=== PATIENT | female | born 1980 | race Caucasian/White ===

== ENCOUNTER 2018-04-30 07:51 | Emergency (ER) | payer OTHER ==
[~2018-04-30] VITALS: Ht 160 cm; Wt 71.8 kg
[~2018-04-30 07:51] MED LIST: IBUPROFEN800 MG PO; MECLIZINE HCL25 MG PO; ZOFRAN ODT4 MG PO
[2018-04-30 08:29] LABS: APPEARANCE CLEAR ((CLEAR)); BILIRUBIN NEGATIVE; BLOOD NEGATIVE; COLOR STRAW ((YELLOW)); GLUCOSE (STRIP) NEGATIVE; KETONES NEGATIVE; LEUKOCYTES NEGATIVE; NITRITE NEGATIVE; PROTEIN (STRIP) NEGATIVE; SPECIFIC GRAVITY 1.003 (1.000-1.030); UCUL ADDED? NO; UROBILINOGEN 0.2 MG/DL (0.2-1.0)
[2018-04-30 08:47] LABS: HEMATOCRIT 38.6 % (36.0-46.0); HEMOGLOBIN 13.1 G/DL (11.9-15.5); MCH 30.5 PG (29.0-34.0); MCHC 33.9 G/DL (30.0-36.0); PLATELET COUNT 350 K/uL (156-360); RBC DIS.WIDTH-CV 13.3 % (11.8-14.6); RBC DIS.WIDTH-SD 43.8 % (39-53); RED BLOOD COUNT 4.29 M/uL (3.80-5.20); WHITE BLOOD COUNT 6.4 K/uL (4.1-10.2)
[2018-04-30 08:55] LABS: ALBUMIN 4.2 g/dL (3.2-4.8)
[2018-04-30 08:56] LABS: CHLORIDE 108 mEq/L (99-109); POTASSIUM 3.9 mEq/L (3.7-5.4); SODIUM 143 mEq/L (136-147)
[2018-04-30 08:58] LABS: GLUCOSE 95 mg/dL (70-99); TOTAL PROTEIN 7.1 g/dL (6.4-8.3)
[2018-04-30 09:00] LABS: TOTAL BILIRUBIN 0.3 mg/dL (0.0-1.0)
[2018-04-30 09:01] LABS: ALKALINE PHOSPHATASE 77 IU/L (3-129)
[2018-04-30 09:02] LABS: CREATININE 0.7 mg/dL (0.6-1.3); GFR ESTIMATE (CALCULATED) > 59 mL/min/
[2018-04-30 09:03] LABS: AST (GOT) 15 IU/L (2-34); UREA NITROGEN (BUN) 5 mg/dL (9-23)
[2018-04-30 09:05] LABS: ALT (GPT) 12 IU/L (3-49)
[2018-04-30 09:13] LABS: QUANTITATIVE HCG < 4.0 MIU/ML
[2018-04-30] MEDS ORDERED: PERCOCET 5/31 TABLET PO (10:42)
[2018-04-30] MEDS ORDERED: ZOFRAN ODT4 MG PO (10:42)
[2018-04-30 10:53] VITALS: BP 104/75
== END 2018-04-30 10:54 | disposition home or self-care (01) ==
LOC: EME 07:51
PROVIDERS: Nurse Practitioner Family
DX: R10.31 Right lower quadrant pain (principal); R11.0 Nausea; K58.9 Irritable bowel syndrome, unspecified; Z88.1 Allergy status to other antibiotic agents; Z88.6 Allergy status to analgesic agent; Z88.8 Allergy status to other drugs, medicaments and biological substances
CPT/HCPCS: 74177; 80053; 81003; 84702; 85027; 93005; 99281; 99285; J2405; J3010; J7030